=== PATIENT | female | born 1935 | race Caucasian/White ===

== ENCOUNTER 2017-07-20 15:01 | Emergency (ER) | payer MEDICARE, OTHER ==
--- NOTE | 2017-07-20 15:29 | EDM.PDOC ---
ED HPI GENERAL MEDICAL PROBLEM - General Chief Complaint: General Stated Complaint: ataxia Time Seen by Provider: 07/20/17 15:01 Source of Information: Reports: Patient, Family History Limitations: Reports: Physical Impairment - History of Present Illness INITIAL COMMENTS - FREE TEXT/NARRATIVE: 81 y.o.w.f came to the ed due to unsteady gate in the past few days. No focal weakness. Pt is not able to ambulate without help. No N/V/D or any other acute medical Issues. BP 147/72 Pulse 72 Temp 36.6 RR 18 O2 sat 98% on RA. Onset Date: 07/18/17 Onset Time: 08:00 Duration: Day(s):, Getting Worse, Intermittent Location: Reports: Generalized Quality: Reports: Other (weakness, not being able to ambulate) Severity: Moderate Improves with: Reports: None Worsens with: Reports: None Context: Reports: Other (unsteady gait) Associated Symptoms: Reports: No Other Symptoms - Related Data Allergies Allergy/AdvReac Type Severity Reaction Status Date / Time shellfish derived Allergy Hives Verified 07/20/17 15:26 Home Meds: Home Meds Flecainide [Tambocor] 50 mg PO BID 07/20/17 [History] Fluvastatin [Lescol XL] 80 mg PO Q48H 07/20/17 [History] Metoprolol Succinate 50 mg PO BID 07/20/17 [History] Sulfamethoxazole/Trimethoprim [Bactrim Ds Tablet] 1 each PO BID #20 tablet 07/20 [Rx] Triamterene/Hydrochlorothiazid [Triamterene-HCTZ 37.5-25 MG] 1 tab PO DAILY 07/08 [History] amLODIPine [Norvasc] 2.5 mg PO DAILY 07/20/17 [History] ED ROS GENERAL - Review of Systems Review Of Systems: See Below Constitutional: Reports: Weakness HEENT: Reports: No Symptoms Respiratory: Reports: No Symptoms Cardiovascular: Reports: No Symptoms Endocrine: Reports: No Symptoms GI/Abdominal: Reports: No Symptoms : Reports: No Symptoms Musculoskeletal: Reports: No Symptoms Skin: Reports: No Symptoms Neurological: Reports: Weakness, Gait Disturbance Psychiatric: Reports: No Symptoms Hematologic/Lymphatic: Reports: No Symptoms Immunologic: Reports: No Symptoms ED EXAM, GENERAL - Physical Exam Exam: See Below Exam Limited By: No Limitations General Appearance: Alert, WD/WN, No Apparent Distress Eye Exam: Bilateral Eye: Normal Inspection Ears: Normal External Exam Ear Exam: Bilateral Ear: Auricle Normal Nose: Normal Inspection Throat/Mouth: Normal Inspection, Normal Lips, Normal Voice, No Airway Compromise , Other (dry mucosal membranes) Head: Atraumatic, Normocephalic Neck: Normal Inspection, Supple, Non-Tender Respiratory/Chest: No Respiratory Distress, Lungs Clear, Normal Breath Sounds, Chest Non-Tender Cardiovascular: Normal Peripheral Pulses, Regular Rate, Rhythm, No Edema, No Gallop Peripheral Pulses: 1+: Carotid (R) GI/Abdominal: Normal Bowel Sounds, Soft, Non-Tender, No Organomegaly, No Abnormal Bruit, No Mass (Female) Exam: Deferred Rectal (Female) Exam: Deferred Back Exam: Normal Inspection, Full Range of Motion Extremities: Normal Inspection, Normal Range of Motion, Non-Tender Neurological: Alert, Oriented, CN II-XII Intact, Normal Cognition, Abnormal Gait (needed help to ambulate), Other (Nl FF and FN test) Psychiatric: Normal Affect, Normal Mood Skin Exam: Warm, Dry, Intact, Normal Color, No Rash Lymphatic: No Adenopathy Course - Vital Signs Text/Narrative:: 81 y.o.w.f came to the ed due to unsteady gate in the past few days. No focal weakness. Pt is not able to ambulate without help. No N/V/D or any other acute medical Issues. BP 147/72 Pulse 72 Temp 36.6 RR 18 O2 sat 98% on RA. PE: WNWD W F NAD NL FF and Nl FN test Labs: UA pos for UTI Imaging: CT head: Frontal lobe atrophy, NAD Impression: Dehydration, JOAN Tx: Water PO, Bactrim Reexam: Improved, pt was ambulating fine in the ed on Discharge Plan: D/C with instructions Last Recorded V/S: Last Vital Signs Temp 36.2 C 07/20/17 15:10 Pulse 74 07/20/17 15:10 Resp 16 07/20/17 15:10 BP 149/72 H 07/20/17 15:10 Pulse Ox 97 07/20/17 15:10 - Orders/Labs/Meds Orders: Active Orders 24 hr Category Date Time Status Head wo Cont [CT] Stat Exams 07/20/17 15:34 Taken CULTURE URINE [RM] Stat Lab 07/20/17 16:35 Received EKG 12 Lead [EK] Routine Ther 07/20/17 15:00 Ordered Labs: Laboratory Tests 07/20/17 07/20/17 07/20/17 Range/Units 15:40 15:40 15:40 WBC 9.2 (4.5-12.0) X10-3/uL RBC 4.63 (3.23-5.20) x10(6)uL Hgb 14.5 (11.5-15.5) g/dL Hct 42.5 (30.0-51.3) % MCV 91.7 (80-96) fL MCH 31.4 (27.7-33.6) pg MCHC 34.2 (32.2-35.4) g/dL RDW 12.1 (11.5-15.5) % Plt Count 261 (125-369) X10(3)uL MPV 8.0 (7.4-10.4) fL Neut % (Auto) 58.3 (46-82) % Lymph % (Auto) 27.0 (13-37) % [place] % (Auto) 9.7 (4-12) % Eos % (Auto) 2 (1.0-5.0) % Baso % (Auto) 3 H (0-2) % Neut # (Auto) 5.4 (1.6-8.3) # Lymph # (Auto) 2.5 (0.6-5.0) # [place]oddard # (Auto) 0.9 (0.0-1.3) # Eos # (Auto) 0.2 (0.0-0.8) # Baso # (Auto) 0.2 (0.0-0.2) # PT 11.4 H (8.7-11.1) INR 1.13 (0.89-1.13) Sodium 142 (135-145) mmol/L Potassium 3.9 (3.5-5.3) mmol/L Chloride 101 (100-110) mmol/L Carbon Dioxide 31 (21-32) mmol/L BUN 27 H (7-18) mg/dL Creatinine 1.5 H (0.55-1.02) mg/dL Est Cr Clr Drug Dosing 24.33 mL/min Estimated GFR (MDRD) 33 L (>60) BUN/Creatinine Ratio 18.0 (9-20) Glucose 148 H (80-116) mg/dL Lactic Acid (0.4-2.2) mmol/L Calcium 9.2 (8.6-10.2) mg/dL Troponin I (<0.017-0.056) ng/mL NT-Pro-B Natriuret Pep (<=450) pg/mL Urine Color (YELLOW) Urine Appearance (CLEAR) Urine pH (5.0-6.5) Ur Specific [place] (1.010-1.025) Urine Protein (NEGATIVE) mg/dL Urine Glucose (UA) (NEGATIVE) mg/dL Urine Ketones (NEGATIVE) mg/dL Urine Occult Blood (NEGATIVE) Urine Nitrite (NEGATIVE) Urine Bilirubin (NEGATIVE) Urine Urobilinogen (NEGATIVE) mg/dL Ur Leukocyte Esterase (NEGATIVE) Urine RBC (0) Urine WBC (0) Ur Squamous Epith Cells (NS,R,O) Urine Bacteria (NS) 07/20/17 07/20/17 07/20/17 Range/Units 15:40 15:40 15:40 WBC (4.5-12.0) X10-3/uL RBC (3.23-5.20) x10(6)uL Hgb (11.5-15.5) g/dL Hct (30.0-51.3) % MCV (80-96) fL MCH (27.7-33.6) pg MCHC (32.2-35.4) g/dL RDW (11.5-15.5) % Plt Count (125-369) X10(3)uL MPV (7.4-10.4) fL Neut % (Auto) (46-82) % Lymph % (Auto) (13-37) % [place] % (Auto) (4-12) % Eos % (Auto) (1.0-5.0) % Baso % (Auto) (0-2) % Neut # (Auto) (1.6-8.3) # Lymph # (Auto) (0.6-5.0) # [place]oddard # (Auto) (0.0-1.3) # Eos # (Auto) (0.0-0.8) # Baso # (Auto) (0.0-0.2) # PT (8.7-11.1) INR (0.89-1.13) Sodium (135-145) mmol/L Potassium (3.5-5.3) mmol/L Chloride (100-110) mmol/L Carbon Dioxide (21-32) mmol/L BUN (7-18) mg/dL Creatinine (0.55-1.02) mg/dL Est Cr Clr Drug Dosing mL/min Estimated GFR (MDRD) (>60) BUN/Creatinine Ratio (9-20) Glucose (80-116) mg/dL Lactic Acid 1.1 (0.4-2.2) mmol/L Calcium (8.6-10.2) mg/dL Troponin I < 0.017 L (<0.017-0.056) ng/mL NT-Pro-B Natriuret Pep 842 H (<=450) pg/mL Urine Color (YELLOW) Urine Appearance (CLEAR) Urine pH (5.0-6.5) Ur Specific [place] (1.010-1.025) Urine Protein (NEGATIVE) mg/dL Urine Glucose (UA) (NEGATIVE) mg/dL Urine Ketones (NEGATIVE) mg/dL Urine Occult Blood (NEGATIVE) Urine Nitrite (NEGATIVE) Urine Bilirubin (NEGATIVE) Urine Urobilinogen (NEGATIVE) mg/dL Ur Leukocyte Esterase (NEGATIVE) Urine RBC (0) Urine WBC (0) Ur Squamous Epith Cells (NS,R,O) Urine Bacteria (NS) 07/20/17 Range/Units 16:35 WBC (4.5-12.0) X10-3/uL RBC (3.23-5.20) x10(6)uL Hgb (11.5-15.5) g/dL Hct (30.0-51.3) % MCV (80-96) fL MCH (27.7-33.6) pg MCHC (32.2-35.4) g/dL RDW (11.5-15.5) % Plt Count (125-369) X10(3)uL MPV (7.4-10.4) fL Neut % (Auto) (46-82) % Lymph % (Auto) (13-37) % [place] % (Auto) (4-12) % Eos % (Auto) (1.0-5.0) % Baso % (Auto) (0-2) % Neut # (Auto) (1.6-8.3) # Lymph # (Auto) (0.6-5.0) # [place] # (Auto) (0.0-1.3) # Eos # (Auto) (0.0-0.8) # Baso # (Auto) (0.0-0.2) # PT (8.7-11.1) INR (0.89-1.13) Sodium (135-145) mmol/L Potassium (3.5-5.3) mmol/L Chloride (100-110) mmol/L Carbon Dioxide (21-32) mmol/L BUN (7-18) mg/dL Creatinine (0.55-1.02) mg/dL Est Cr Clr Drug Dosing mL/min Estimated GFR (MDRD) (>60) BUN/Creatinine Ratio (9-20) Glucose (80-116) mg/dL Lactic Acid (0.4-2.2) mmol/L Calcium (8.6-10.2) mg/dL Troponin I (<0.017-0.056) ng/mL NT-Pro-B Natriuret Pep (<=450) pg/mL Urine Color Yellow (YELLOW) Urine Appearance Cloudy (CLEAR) Urine pH 6.5 (5.0-6.5) Ur Specific [place] 1.015 (1.010-1.025) Urine Protein Negative (NEGATIVE) mg/dL Urine Glucose (UA) Normal (NEGATIVE) mg/dL Urine Ketones Negative (NEGATIVE) mg/dL Urine Occult Blood Negative (NEGATIVE) Urine Nitrite Positive H (NEGATIVE) Urine Bilirubin Negative (NEGATIVE) Urine Urobilinogen Normal (NEGATIVE) mg/dL Ur Leukocyte Esterase Moderate H (NEGATIVE) Urine RBC 0-5 (0) Urine WBC 5-10 (0) Ur Squamous Epith Cells Few H (NS,R,O) Urine Bacteria Many H (NS) Meds: Medications Discontinued Medications Generic Name Dose Route Start Last Admin Trade Name Freq PRN Reason Stop Dose Admin Trimethoprim/Sulfamethoxazole Confirm 07/20/17 18:02 07/20/17 18:07 Sept Ds Administered 07/20/17 18:03 Not Given Dose 1 tab .ROUTE .STK-MED ONE Trimethoprim/Sulfamethoxazole 1 tab 07/20/17 18:08 07/20/17 18:09 Septra Ds PO 07/20/17 18:09 1 tab ONETIME ONE Administration Departure - Departure Time of Disposition: 18:09 Disposition: Home, Self-Care 01 Condition: Good Clinical Impression: Dehydration UTI (urinary tract infection) Qualifiers: Urinary tract infection type: acute cystitis Hematuria presence: without hematuria Qualified Code(s): N30.00 - Acute cystitis without hematuria - Discharge Information Prescriptions: Sulfamethoxazole/Trimethoprim [Bactrim Ds Tablet] 1 each PO BID #20 tablet Instructions: Urinary Tract Infection, Adult, [id number], Rehydration, Elderly Referrals: Eddi Parr MD [Primary Care Provider] - Forms: ED Department Discharge Additional Instructions: Please increase water intake, please take the Abx as recommended, please follow , come back if your symptoms get worse acutely. - My Orders Last 24 Hours: My Active Orders 07/20/17 15:00 EKG 12 Lead [EK] Routine 07/20/17 15:34 Head wo Cont [CT] Stat 07/20/17 16:35 CULTURE URINE [RM] Stat - Assessment/Plan Last 24 Hours: My Active Orders 07/20/17 15:00 EKG 12 Lead [EK] Routine 07/20/17 15:34 Head wo Cont [CT] Stat 07/20/17 16:35 CULTURE URINE [RM] Stat
[2017-07-20] MEDS ORDERED: Sulfamethoxazole/Trimethoprim 400-80 MG Tab PO ONE (17:54)
[2017-07-20] MEDS ORDERED: Sulfamethoxazole/Trimethoprim 800-160 MG Tab ONE (18:02)
[2017-07-20] MEDS ORDERED: Sulfamethoxazole/Trimethoprim 800-160 MG Tab PO ONE (18:08)
[2017-07-21] MEDS ORDERED: Sulfamethoxazole/Trimethoprim 400-80 MG Tab PO ONE (17:48)
--- NOTE | 2017-07-23 08:13 | CT ---
INDICATION: Ataxia, dizziness, generalized weakness, no history of trauma or headache. CT HEAD WITHOUT CONTRAST: Serial contiguous 2.5 and 5 mm sections were obtained through the brain without contrast. Total exam DLP = 949.36 mGy-cm. Visualized paranasal sinuses and mastoid air cells were well-aerated. No cranial abnormality was suggested. No shift of midline structures or ventricular abnormalities were identified. Calcifications are noted in the internal carotid arteries. No abnormal areas of density were identified - no bleeding site or hematoma was seen. A mild degree of frontal cortical and temporal cortical atrophy is suggested. IMPRESSION: 1. No acute intracranial abnormality. 2. 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 3. Mild internal carotid artery calcifications. Report was called to Dr. Duncan at 1615 hours on 07/20/2017. [facility]
== END 2017-07-20 18:15 | disposition home or self-care (01) ==
LOC: FB.ED 15:01
DX: E86.0 Dehydration (principal); N30.00 Acute cystitis without hematuria; Z91.013 Allergy to seafood; Z79.899 Other long term (current) drug therapy
CPT/HCPCS: 36415; 70450; 80048; 81001; 83605; 83880; 84484; 85025; 85610; 87086; 87088; 87186; 93005; 99284; A9270